=== PATIENT | male | born 1995 | race Caucasian/White ===

== ENCOUNTER 2024-05-20 11:42 | Emergency (ER) | payer MEDICAID ==
[~2024-05-20] VITALS: Ht 188 cm; Wt 83.9 kg
[2024-05-20] MEDS ORDERED: IBUP-1953 PO (13:00)
[2024-05-20] MEDS ORDERED: TYL2T PO (13:00)
[2024-05-20 13:20] VITALS: BP 128/67; TEMP 98.7; O2SAT 97
== END 2024-05-20 13:39 | disposition home or self-care (01) ==
LOC: ER 11:42
DX: S90.32XA Contusion of left foot, initial encounter (principal); S90.31XA Contusion of right foot, initial encounter; Y93.39 Activity, other involving climbing, rappelling and jumping off; Y93.89 Activity, other specified; Y92.89 Other specified places as the place of occurrence of the external cause; Y99.8 Other external cause status
CPT/HCPCS: 73630-TC; 73650-TC